=== PATIENT | female | born 1980 | race Caucasian/White ===

== ENCOUNTER 2018-08-03 13:11 | Outpatient (CLI) | payer OTHER | END 2018-08-03 23:59 | disposition home or self-care (01) | LOC: CFH 13:11 | PROVIDERS: ATTEND Obstetrics & Gynecology Gynecology | DX: N63.10 Unspecified lump in the right breast, unspecified quadrant (principal) | CPT/HCPCS: 76641; 77066; G0279; 77063 ==

== ENCOUNTER 2020-08-12 15:06 | Emergency (ER) | payer OTHER ==
[~2020-08-12] VITALS: Ht 165.1 cm; Wt 58.0 kg
--- NOTE | 2020-08-12 15:46 | NUR ---
pt in bed with no signs or symptoms of acute distress noted respiraitons even and unlabored, aware and agreeable with plan of care. call light within reach
[2020-08-12 16:10] LABS: BASOPHILS % (AUTO) 0 % (0-1); EOSINOPHILS % (AUTO) 1 % (1-7); LYMPHOCYTES % (AUTO) 28 % (22-44); MEAN CORPUSCULAR HEMOGLOBIN 28.7 pg (27.0-34.8); MEAN CORPUSCULAR HGB CONC 32.7 g/dL (32.4-35.8); MONOCYTES % (AUTO) 8 % (2-9); NEUTROPHILS % (AUTO) 63 % (42-75); PLATELET COUNT 219 x10^3/uL (130-400); RED BLOOD COUNT 4.17 x10^6/uL (3.82-5.3); RED CELL DISTRIBUTION WIDTH 15.9 % (9.6-15.2)
[2020-08-12 16:11] LABS: MD NO
[2020-08-12 16:20] LABS: ALBUMIN 3.6 g/dL (3.4-5.0); ANION GAP 6 mmol/L (5-15); CALCIUM 8.3 mg/dL (8.5-10.1); CHLORIDE 111 mmol/L (98-107)
[2020-08-12 16:23] LABS: ALANINE AMINOTRANSFERASE 17 U/L (12-78); ALKALINE PHOSPHATASE 54 U/L (45-117); BILIRUBIN,TOTAL 0.4 mg/dL (0.2-1.0); CREATININE 0.78 mg/dL (0.55-1.02); TOTAL PROTEIN 7.1 g/dL (6.4-8.2)
--- NOTE | 2020-08-12 16:45 | NUR ---
pt in bed with no signs or symptoms of acute distress noted respirations even and unlabored
[2020-08-12 16:59] VITALS: BP 118/71
== END 2020-08-12 17:56 | disposition home or self-care (01) ==
LOC: ED 17:15
DX: M25.561 Pain in right knee (principal); M79.604 Pain in right leg
CPT/HCPCS: 36415; 80053; 83735; 85025; 99284